=== PATIENT | male | born 1945 | race Caucasian/White ===

== ENCOUNTER 2020-03-16 10:58 | Day surgery (SDC) | payer MEDICARE, BC ==
[2020-03-16] VITALS (12 sets, daily range): BP systolic 109–161; BP diastolic 48–91
[~2020-03-16] VITALS: Ht 172.7 cm; Wt 79.1 kg
[~2020-03-16 10:58] MED LIST: FLO0.4C PO; METH-233 PO; NORCO10T PO
[2020-03-16] MEDS ORDERED: METH750T3 PO (11:35)
[2020-03-16] MEDS ORDERED: GABA300C PO (11:35)
[2020-03-16] MEDS ORDERED: normal saline 1,000 ML IV SCH (11:35)
[2020-03-16] MEDS ORDERED: TERA5CAP4 PO (11:35)
[2020-03-16] MEDS ORDERED: diphenhydrAMINE 25mg capsule PO PRN (11:35)
[2020-03-16] MEDS ORDERED: nitroGLYCERIN 0.4mg SUBLingual tab SL PRN (11:35)
[2020-03-16] MEDS ORDERED: LORazepam 0.5 MG tablet PO PRN (11:35)
[2020-03-16] MEDS ORDERED: FINA5TAB12 PO (11:35)
[2020-03-16] MEDS ORDERED: midazolam 2 mg/2 ml injection ONE (12:22)
[2020-03-16] MEDS ORDERED: iohexol 350 MG/ML 50ML vial IV ONE (12:23)
[2020-03-16] MEDS ORDERED: fentaNYL/PF 50MCG/1 ML 2ML syringe ONE (12:23)
[2020-03-16] MEDS ORDERED: iohexol 350MG/ML 100ml bottle IV ONE (12:23)
[2020-03-16] MEDS ORDERED: LIDOcaine 1% (10mg/ml)w/preservative injection 20ml MDV ONE (12:23)
[2020-03-16] MEDS ORDERED: proCHLORperazine 10 MG/2 ml inj ONE (12:43)
[2020-03-16] MEDS ORDERED: HYDROcodone/acetaminophen 10/325mg tab PO PRN (13:35)
[2020-03-16] MEDS ORDERED: proCHLORperazine 10 MG/2 ml inj IV PRN (13:35)
[2020-03-16] MEDS ORDERED: acetaminophen 325mg tablet PO PRN (13:35)
[2020-03-16] MEDS ORDERED: OXAZEpam 15mg capsule PO PRN (13:35)
[2020-03-16] MEDS ORDERED: ondansetron/PF 4mg/2ml inj IV PRN (13:35)
[2020-03-16] MEDS ORDERED: HYDROcodone/acetaminophen 5mg/325mg tablet PO PRN (13:35)
== END 2020-03-16 19:30 | disposition home or self-care (01) ==
LOC: SSTAY O 10:58
PROVIDERS: ATTEND Internal Medicine Cardiovascular Disease
DX: R94.39 Abnormal result of other cardiovascular function study (principal); I25.10 Atherosclerotic heart disease of native coronary artery without angina pectoris; G89.4 Chronic pain syndrome; I10 Essential (primary) hypertension; E78.5 Hyperlipidemia, unspecified; Z79.899 Other long term (current) drug therapy; Z98.890 Other specified postprocedural states; Z87.891 Personal history of nicotine dependence
CPT/HCPCS: 93458; 99152; C1760; C1769; J0780; J1644; J2001; J2250; J3010; J7030; Q0163; Q9967; A4620; A6258